=== PATIENT | female | born 1935 | race Caucasian/White ===

== ENCOUNTER 2022-02-10 05:17 | Inpatient (IN) | payer OTHER, MEDICARE ==
[~2022-02-10] VITALS: Ht 165.1 cm; Wt 93.9 kg
[~2022-02-10 05:17] MED LIST: BIMA2.5D5 OP; FURO-150 PO; ROPI1TAB2 PO; TIMO5DRO15 OP
[2022-02-10 06:00] VITALS: BP_SYST 102
--- NOTE | 2022-02-10 06:23 | NUR ---
PER PATIENT AND EMS, PATIENT WAS ALTERED AND FEELING FEVERISH THIS AM. PATIENT WAS FOUND TO BE 76% ON RA. 10L SIMPLE MASK APPLIED TO PATIENT. PATIENT WAS A/O X4 UPON EMS ARRIVAL. PATIENT STILL WAITING IN AMBULANCE UNTIL COVID ROOM OPENS UP. EXPLAINED PROCESS TO PATIENT AND SHE STATED UNDERSTANDING.
--- NOTE | 2022-02-10 06:24 | NUR ---
MADELINE MICHEL [phone]
[2022-02-10 07:08] LABS: BASOPHILS % (AUTO) 0.3 % (0.0-2.0); EOSINOPHILS % (AUTO) 0.2 % (0.0-4.0); HEMATOCRIT 36.5 % (36-48); HEMOGLOBIN 12.3 g/dL (12.0-16.0); LYMPHOCYTES # (AUTO) 1.2 K/uL (1.0-5.5); LYMPHOCYTES % (AUTO) 14.6 % (20.5-51.5); MEAN CORPUSCULAR HEMOGLOBIN 28 pg (27-31); MEAN CORPUSCULAR HGB CONC 34 % (32-36); MEAN CORPUSCULAR VOLUME 83 fL (79.0-98.0); MONOCYTES # (AUTO) 0.9 K/uL (0.0-1.0); MONOCYTES % (AUTO) 10.5 % (1.7-9.3); NEUTROPHILS # (AUTO) 6.2 K/uL (1.8-7.7); NEUTROPHILS % (AUTO) 74.4 % (40.0-70.0); PLATELET COUNT (AUTO) 243 K/uL (130-430); RED BLOOD CELL COUNT(AUTO) 4.39 MIL/uL (4.2-6.2); RED CELL DISTRIBUTION WIDTH 14.6 % (9.0-15.0); WHITE BLOOD COUNT (AUTO) 8.3 K/uL (4.8-10.8)
[2022-02-10 07:20] LABS: ANION GAP 9 (5-15); CALCIUM 8.7 mg/dL (8.4-11.0); CHLORIDE 96 mmol/L (98-107); CREATININE 1.06 mg/dL (0.55-1.30); GLUCOSE 111 mg/dL (70-99); POTASSIUM 3.4 mmol/L (3.5-5.1); SODIUM SERUM 136 mmol/L (136-145); UREA NITROGEN, BLOOD 17 mg/dL (8-21)
[2022-02-10 07:29] LABS: ALANINE AMINOTRANSFERASE 11 U/L (12-78); ALBUMIN 3.2 g/dL (3.4-4.8); ASPARTATE AMINOTRANSFERASE 24 U/L (10-37); TOTAL BILIRUBIN 0.6 mg/dL (0.0-1.0)
--- NOTE | 2022-02-10 08:47 | NUR ---
RECEIVED PT FROM [facility]. PT AAOX4. ON NR AT 15LPM. O2 SAT 98%. NO COUGH NOTED. LUNG SOUNDS DIMINISHED. PT DENIES PAIN. PT DENIES IV ACCESS AT THIS TIME. PT STATES SHE WANT TO GO AMA. EDUCATED PT ON RISKS AND BENEFIT. PT WILL STAY AT THIS TIME.
--- NOTE | 2022-02-10 08:48 | NUR ---
RECEIVED PT FROM [facility] EMT. PT RECEIVING LABS AND CXR AT THIS TIME.
--- NOTE | 2022-02-10 09:52 | NUR ---
EKG performed at by [facility]. Physician given copy of EKG for review.
--- NOTE | 2022-02-10 10:31 | NUR ---
Admit bed requested Patient will be admitted to care of Dr. Colón. Admitted to tele unit. Diagnosis Acute resp fail, COVID PNA Inpatient (Yes or No) Y Observation (Yes or No) N Orientation concerns or request close to nursing station (Yes or No) N Covid Status Pend On vent or bipap N Isolation requirements N Needs a sitter N From Home (Yes or if No enter name of facility) Requires Dialysis (Yes or No) N Med Rec Completed (Yes of No) Y
[2022-02-10] MEDS ORDERED: IPRATROPIUM/ALBUTEROL SULFATE 3 ML AMPUL.NEB (DUONEB) INH PRN ×2 (14:00→14:15)
[2022-02-10] MEDS ORDERED: ACETAMINOPHEN 325 MG TABLET PO PRN (14:00)
[2022-02-10] MEDS ORDERED: ALBUTEROL MDI INHALATION 8 GM INH INH PRN (14:30)
[2022-02-10 17:09] VITALS: BP_SYST 133
--- NOTE | 2022-02-10 19:28 | NUR ---
ENDORSED ALL CARE TO CJ DUTTA. ALL QUESTIONS AND CONCERNS ADDRESSED.
[2022-02-10] MEDS ORDERED: CHOLECALCIFEROL (VITAMIN D3) 5,000 UNIT TABLET PO ONE (20:00)
[2022-02-10] MEDS ORDERED: PANTOPRAZOLE SODIUM 40 MG TAB PO ONE (20:00)
[2022-02-10] MEDS ORDERED: POTASSIUM CHLORIDE 20 MEQ TAB.PRT.SR PO ONE (20:00)
[2022-02-10 20:12] LABS: BILIRUBIN,URINE NEGATIVE (NEGATIVE); BLOOD, URINE NEGATIVE (NEGATIVE); CLARITY/URINE CLEAR (CLEAR); COLOR,URINE YELLOW (YELLOW); GLUCOSE,URINE NEGATIVE (NEGATIVE); KETONES,URINE TRACE (NEGATIVE); LEUKOCYTE ESTERASE ,URINE TRACE (NEGATIVE); NITRITE, URINE NEGATIVE (NEGATIVE); PH,URINE 5.5 (5.0-8.0); PROTEIN URINE 1+ (NEGATIVE); UROBILINOGEN,URINE 0.2 (0.2-1.0)
--- NOTE | 2022-02-10 20:30 | NUR ---
Patient will be admitted to care of TELE. Admitted to unit. Will go to room . Belongings list completed. Complete and up to date summary report printed. SBAR report to be given at bedside with opportunity for questions.
[2022-02-10 20:43] LABS: BACTERIA,URINE MODERATE /HPF (None Seen); FINE GRANULAR CASTS,URINE 0-10 /LPF (None Seen); HYALINE CASTS, URINE 0-10 /LPF (None Seen); RBC,URINE 0-3 /HPF (0-3); WBC,URINE 0-3 /HPF (0-3)
--- NOTE | 2022-02-10 20:48 | NUR ---
PATIENT BEING SET UP FOR TRANSFER TO UNIT, BED 124A
[2022-02-10 22:06] VITALS: BP_SYST 120
[2022-02-10] MEDS: DEXAMETHASONE SOD PHOSPHATE 10 MG/ML VIAL IVP SCH (22:52)
[2022-02-10] MEDS: ASCORBIC ACID 500 MG TABLET PO SCH (22:53)
[2022-02-10] MEDS: MAGNESIUM OXIDE 400 MG TABLET PO SCH (22:53)
[2022-02-10] MEDS: LATANOPROST 2.5 ML DROPS (XALATAN) OP SCH (22:54)
[2022-02-10] MEDS: TIMOLOL MALEATE 0.5% OPHTHALMIC DROPS 5 ML OP SCH (22:55)
--- NOTE | 2022-02-10 23:00 | NUR ---
ADMISSION NOTE Received patient from ER via gurney. Patient admitted with diagnosis of RESP FAILURE AND COVID PNS. Patient is awake, alert, oriented X2-3. Patient oriented to hospital room, call light, toileting, pain management and safety-teach back done. Patient informed that I will be HER nurse and that their room number is 124A. Personal belongings checked and Belongings List documented. Call light within reach.
--- NOTE | 2022-02-11 | NUR ---
NO CHANGES NOTED FROM THE PREVIOUS ASSESSMENT, WILL CONTINUE TO MONITOR.
[2022-02-11 00:39] VITALS: BP_SYST 121
--- NOTE | 2022-02-11 01:20 | NUR ---
CALLED : DR MOORE CALLED , NOTIFIED MD THAT PT IS C/O ANXIETY AND PT TAKES ATIVAN AT HOME , BUT PT DOESNT REMEMBER THE DOSE . ORDERED ATIVAN 1 MG PO BID PRN FOR ANXIETY , ALSO C/O DIFFICULTY IN SLEEPING , MD ORDERED RESTORIL 30 MG PO QHS PRN . FOR PAIN MD ORDERED ULTRAM 50 MG PO Q6HRS PRN FOR MODERATE PAIN , AND TYLENOL 650 MG PO Q6HRS PRN FOR MILD PAIN . ORDER READBACK AND VERIFIED WITH MD . PRIMARY RN NOTIFIED ABOUT THE NEW ORDERS. MD ORDERED NOT TO GIVE RESTORIL AND ATIVAN TOGETHER , INFORMED THAT ALSO TO PRIMARY RN .
[2022-02-11] MEDS ORDERED: ACETAMINOPHEN 325 MG TABLET PO PRN (01:30)
[2022-02-11] MEDS ORDERED: traMADol HCL HCL 50 MG TABLET (ULTRAM) PO PRN (01:30)
[2022-02-11] MEDS ORDERED: TEMAZEPAM 15 MG CAPSULE PO PRN (01:30)
[2022-02-11] MEDS: LORazepam 1 MG TABLET PO PRN ×3 (02:27→20:54)
--- NOTE | 2022-02-11 06:14 | NUR ---
PT RESTING COMFORTABLY IN BED, NO S/S OF DISTRESS OR DISCOMFORT NOTED, BREATHING EVEN AND UNLABORED, ALL FALL PROTOCOLS IN PLACE, WILL CONTINUE TO MONITOR AND ENDORSED TO INCOMING AM NURSE.
--- NOTE | 2022-02-11 06:41 | NUR ---
consult called for cardio for Dr Sultana. Spoke with Radha
[2022-02-11 06:48] LABS: HEMATOCRIT 37.1 % (36-48); HEMOGLOBIN 12.6 g/dL (12.0-16.0); LYMPHOCYTES # (AUTO) 0.7 K/uL (1.0-5.5); LYMPHOCYTES % (AUTO) 15.1 % (20.5-51.5); MEAN CORPUSCULAR HEMOGLOBIN 28 pg (27-31); MEAN CORPUSCULAR HGB CONC 34 % (32-36); MEAN CORPUSCULAR VOLUME 83 fL (79.0-98.0); MONOCYTES # (AUTO) 0.1 K/uL (0.0-1.0); MONOCYTES % (AUTO) 2.2 % (1.7-9.3); NEUTROPHILS # (AUTO) 3.6 K/uL (1.8-7.7); NEUTROPHILS % (AUTO) 82.7 % (40.0-70.0); PLATELET COUNT (AUTO) 238 K/uL (130-430); RED BLOOD CELL COUNT(AUTO) 4.47 MIL/uL (4.2-6.2); RED CELL DISTRIBUTION WIDTH 14.1 % (9.0-15.0); WHITE BLOOD COUNT (AUTO) 4.4 K/uL (4.8-10.8)
--- NOTE | 2022-02-11 06:49 | NUR ---
consult called for ID for Dr Gordon. Spoke with Radha
--- NOTE | 2022-02-11 07:15 | NUR ---
REPORT GIVEN TO ORIN MONREAL FOR CONTINUITY OF CARE ALL QUESTIONS WERE ANSWERED AND CEMENT LOADER VERBALIZED UNDERSTANDING.
[2022-02-11 08:00] VITALS: BP_SYST 174
[2022-02-11 08:22] LABS: ALBUMIN 3.1 g/dL (3.4-4.8); ANION GAP 7 (5-15); ASPARTATE AMINOTRANSFERASE 22 U/L (10-37); CALCIUM 8.8 mg/dL (8.4-11.0); CHLORIDE 97 mmol/L (98-107); GLUCOSE 130 mg/dL (70-99); POTASSIUM 4.1 mmol/L (3.5-5.1); SODIUM SERUM 134 mmol/L (136-145); TOTAL BILIRUBIN 0.5 mg/dL (0.0-1.0); UREA NITROGEN, BLOOD 22 mg/dL (8-21)
[2022-02-11] MEDS: ASCORBIC ACID 500 MG TABLET PO SCH ×3 (08:34→20:53)
[2022-02-11] MEDS: MAGNESIUM OXIDE 400 MG TABLET PO SCH ×3 (08:34→20:53)
[2022-02-11] MEDS: TIMOLOL MALEATE 0.5% OPHTHALMIC DROPS 5 ML OP SCH ×3 (08:34→20:54)
[2022-02-11] MEDS: PANTOPRAZOLE SODIUM 40 MG TAB PO SCH ×2 (08:35→08:56)
[2022-02-11] MEDS: CHOLECALCIFEROL (VITAMIN D3) 5,000 UNIT TABLET PO SCH ×2 (08:35→08:56)
[2022-02-11] MEDS: POTASSIUM CHLORIDE 20 MEQ TAB.PRT.SR PO SCH (08:35)
[2022-02-11 08:39] LABS: ALANINE AMINOTRANSFERASE 10 U/L (12-78)
[2022-02-11] MEDS: FUROSEMIDE 40 MG TABLET PO SCH ×2 (08:39→08:55)
--- NOTE | 2022-02-11 08:57 | NUR ---
OPENING NOTE Patient in bed resting with eyes closed. No sign of distress and patient denies pain. Patient has refused 5 medications stating, "I took them last night, I don't need them". Attempted to educate the patient but she continued to refuse. IV site is clean, dry, and intact. Educated patient on her plan of care for the day and isolation precautions. All needs met at this time and safety checks made.
[2022-02-11] MEDS ORDERED: BIMATOPROST 0.01%, 2.5 ML EYE DROPS OP SCH (09:00)
[2022-02-11 10:14] VITALS: BP_SYST 159
[2022-02-11] MEDS ORDERED: LISINOPRIL 10 MG TABLET (PRINIVIL) PO ONE (10:15)
[2022-02-11] MEDS: AZITHROMYCIN 500 MG in NS 250 ML IV SCH (14:44)
[2022-02-11 16:05] VITALS: BP_SYST 151
--- NOTE | 2022-02-11 19:35 | NUR ---
CLOSING NOTE Patient resting in bed, alert and oriented to self and place. Patient has been agitated and wishes to be discharged home. Updated the patient on her plan of care, verbalized understanding. Patient is forgetful and overestimates her ability to get up and walk. Reoriented patient and ensured safety measures. IV is clean, dry, intact, and saline locked. Safety checks made and all needs met at this time. Endorsed to night worker nurse.
[2022-02-11 20:00] VITALS: BP_SYST 182
--- NOTE | 2022-02-11 20:00 | NUR ---
RECEIVED PT FROM DAY SHIFT, PT AOX2-3,NO ACUTE DISTRESS OR DISCOMFORT NOTED, BREATHING EVEN AND UNLABORED, IV SITE IS INTACT AND PATENT SALINE LOCK, 2L NC SATURATING WELL, FALL AND SAFETY PRECAUTIONS IN PLACE WITH BED IN LOWEST POSITION, BED ALARM ON, AND CALL LIGHT WITHIN REACH, WILL CONTINUE TO MONITOR.
[2022-02-11] MEDS: DEXAMETHASONE SOD PHOSPHATE 10 MG/ML VIAL IVP SCH (20:53)
[2022-02-11] MEDS: LATANOPROST 2.5 ML DROPS (XALATAN) OP SCH (20:54)
[2022-02-11] MEDS: cloNIDine HCL 0.1 MG TABLET PO PRN (20:56)
--- NOTE | 2022-02-12 | NUR ---
NO CHANGES NOTED FROM THE PREVIOUS ASSESSMENT, WILL CONTINUE TO MONITOR.
[2022-02-12 01:14] VITALS: BP_SYST 178
[2022-02-12] MEDS: cloNIDine HCL 0.1 MG TABLET PO PRN (01:43)
[2022-02-12 01:45] VITALS: BP_SYST 157
[2022-02-12] MEDS ORDERED: cloNIDine HCL 0.1 MG TABLET PO PRN (02:00)
--- NOTE | 2022-02-12 07:22 | NUR ---
REPORT GIVEN TO DESIREE MONREAL FOR CONTINUITY OF CARE ALL QUESTIONS WERE ANSWERED AND BAKERY DEMONSTRATOR VERBALIZED UNDERSTANDING.
[2022-02-12 07:45] VITALS: BP_SYST 135
--- NOTE | 2022-02-12 08:00 | NUR ---
OPENING NOTES: Received Pt. in bed, alert, awake, able to make her needs known. Safety precaution observed. Will continue to monitor.
[2022-02-12] MEDS ORDERED: LISINOPRIL 10 MG TABLET (PRINIVIL) PO SCH (09:00)
[2022-02-12] MEDS: TIMOLOL MALEATE 0.5% OPHTHALMIC DROPS 5 ML OP SCH ×2 (09:52→22:05)
[2022-02-12] MEDS: PANTOPRAZOLE SODIUM 40 MG TAB PO SCH (09:54)
[2022-02-12] MEDS: POTASSIUM CHLORIDE 20 MEQ TAB.PRT.SR PO SCH (09:54)
[2022-02-12] MEDS: FUROSEMIDE 40 MG TABLET PO SCH (09:55)
[2022-02-12] MEDS: LISINOPRIL 10 MG TABLET (PRINIVIL) PO SCH (09:56)
[2022-02-12] MEDS: MAGNESIUM OXIDE 400 MG TABLET PO SCH ×2 (09:56→22:04)
[2022-02-12] MEDS: ASCORBIC ACID 500 MG TABLET PO SCH ×2 (09:56→22:03)
[2022-02-12] MEDS: ENOXAPARIN SODIUM 40 MG/0.4 ML SYRINGE SUBCUT SCH (09:57)
[2022-02-12] MEDS: CHOLECALCIFEROL (VITAMIN D3) 5,000 UNIT TABLET PO SCH (09:58)
[2022-02-12 12:07] VITALS: BP_SYST 132
--- NOTE | 2022-02-12 13:09 | NUR ---
Dietitian Recommendations * Mechanical soft diet, Ensure Enlive TID (ONS yield 1050 kcal/day, 60 gm protein/day) * Encourage increase PO intakes LP, RD Please refer to Nutrition Assessment for details. Addendum: 02/12/22 at [address] Amended: Links added.
[2022-02-12] MEDS: AZITHROMYCIN 500 MG in NS 250 ML IV SCH (14:10)
--- NOTE | 2022-02-12 15:08 | NUR ---
Wound Evaluation: Wound Consult ordered for Low David Score. Patient evaluated for a low David score of 14. Patient was awake, alert, oriented and received in a Christel Bed. Patient needs assist to turn in bed. Skin is intact. Recommend: Encourage and assist patient as needed with repositioning every 2 hours with pillow support. Elevate, off-load and float bilateral heels with pillows. Offload pressure areas with pillows for pressure re-distribution. Perform skin care and monitor skin integrity Q shift. Use moisture barrier cream on moisture susceptible areas QID and PRN for soiling. Place patient on a low air-loss mattress.
--- NOTE | 2022-02-12 15:22 | NUR ---
DISCHARGE PLANNING Order for dc planning for home health & home o2. Discussed with Dr Colón this am in ns station, plan for dc home tomorrow if pt stable and home O2, if needed, set up. Spoke with nurse & aware of plan, states will do home O2 eval. Pt covid +, called room and no answer. Called pt ph listed on face sheet & was dtr Christy Lr's #, ph [phone]. Verified address correct on face sheet. Pt lives with 26 yo grandson. Updated on PT notes. States wants pt to dc home, agreeable with home O2 if qualifies. Agreeable with home health with no preference. Dtr states aware that home health may not come until off quarintine and ok with it, would like to know when they would be starting. States Grandson is going to be quarantining with pt, does not have covid but will be taking precautions. Dtr lives close by and is going to be making meals and taking it to them, also will be taking them groceries. Has a lot of other family that also live close by and can assist if needed but will try to minimize to grandson living with pt to not spread covid. Updated dc special events planner.
[2022-02-12 16:09] VITALS: BP_SYST 131
--- NOTE | 2022-02-12 18:00 | NUR ---
CLOSING NOTES: Pt. alert, cooperative. PT did evaluation for O2 tolerance. Pt. started at 96% O2 before ambulation PT. O2 dropped to 88% during ambulation and up to 93% after ambulation and rest. Started to put Pt. on RA, O2 sat varies from 93% to 96% on RA. Patient need met throughout shift, kept clean and dry, safety precaution observed, IV patent and infusing well.
[2022-02-12 20:00] VITALS: BP_SYST 181
--- NOTE | 2022-02-12 20:00 | NUR ---
RECEIVED PT FROM DAY SHIFT, PT AOX2-3,NO ACUTE DISTRESS OR DISCOMFORT NOTED, BREATHING EVEN AND UNLABORED, IV SITE IS INTACT AND PATENT SALINE LOCK, ROOM AIR SATURATING WELL, FALL AND SAFETY PRECAUTIONS IN PLACE WITH BED IN LOWEST POSITION, BED ALARM ON, BSC ,AND CALL LIGHT WITHIN REACH, WILL CONTINUE TO MONITOR.
[2022-02-12] MEDS: LORazepam 1 MG TABLET PO PRN (22:02)
[2022-02-12] MEDS: DEXAMETHASONE SOD PHOSPHATE 10 MG/ML VIAL IVP SCH (22:05)
[2022-02-12] MEDS: LATANOPROST 2.5 ML DROPS (XALATAN) OP SCH (22:06)
--- NOTE | 2022-02-13 | NUR ---
NO CHANGES NOTED FROM THE PREVIOUS ASSESSMENT, WILL CONTINUE TO MONITOR.
[2022-02-13 01:45] VITALS: BP_SYST 154
[2022-02-13 07:22] LABS: BASOPHILS % (AUTO) 0.2 % (0.0-2.0); HEMATOCRIT 37.8 % (36-48); HEMOGLOBIN 12.9 g/dL (12.0-16.0); LYMPHOCYTES # (AUTO) 0.6 K/uL (1.0-5.5); LYMPHOCYTES % (AUTO) 10.6 % (20.5-51.5); MEAN CORPUSCULAR HEMOGLOBIN 28 pg (27-31); MEAN CORPUSCULAR HGB CONC 34 % (32-36); MEAN CORPUSCULAR VOLUME 82 fL (79.0-98.0); MONOCYTES # (AUTO) 0.2 K/uL (0.0-1.0); MONOCYTES % (AUTO) 3.9 % (1.7-9.3); NEUTROPHILS # (AUTO) 5.2 K/uL (1.8-7.7); NEUTROPHILS % (AUTO) 85.3 % (40.0-70.0); PLATELET COUNT (AUTO) 255 K/uL (130-430); RED BLOOD CELL COUNT(AUTO) 4.61 MIL/uL (4.2-6.2); RED CELL DISTRIBUTION WIDTH 14.4 % (9.0-15.0); WHITE BLOOD COUNT (AUTO) 6.1 K/uL (4.8-10.8)
--- NOTE | 2022-02-13 07:32 | NUR ---
REPORT GIVEN TO DESIREE MONREAL FOR CONTINUITY OF CARE ALL QUESTIONS WERE ANSWERED AND LOGGING TRUCK DRIVER VERBALIZED UNDERSTANDING.
[2022-02-13 08:00] VITALS: BP_SYST 154
[2022-02-13 09:21] VITALS: BP_SYST 154
--- NOTE | 2022-02-13 10:28 | NUR ---
Discharge Planning: [facility] faxed pt referral to [facility] [phone], [facility] [phone] for home oxygen. [facility] left form on pt chart to sign for home oxygen. DCP to follow up Addendum: 02/13/22 at 1551 by Talita Dhillon DP DCP faxed signed documents to [facility] [phone] home oxygen will be delivered, [facility] [phone] nursing for covid positive. [facility] faxed to [facility] [phone] Alex contact Sh[facility] [phone] patient was accepted and can be seen 5 days after testing positive, she can be seen Wednesday. [facility]INA made weekend CM aware.
[2022-02-13] MEDS: ENOXAPARIN SODIUM 40 MG/0.4 ML SYRINGE SUBCUT SCH (10:47)
[2022-02-13] MEDS: CHOLECALCIFEROL (VITAMIN D3) 5,000 UNIT TABLET PO SCH (10:48)
[2022-02-13] MEDS: FUROSEMIDE 40 MG TABLET PO SCH ×2 (10:48→11:06)
[2022-02-13] MEDS: POTASSIUM CHLORIDE 20 MEQ TAB.PRT.SR PO SCH ×2 (10:49→11:05)
[2022-02-13] MEDS: PANTOPRAZOLE SODIUM 40 MG TAB PO SCH (10:49)
[2022-02-13] MEDS: ASCORBIC ACID 500 MG TABLET PO SCH (10:49)
[2022-02-13] MEDS: MAGNESIUM OXIDE 400 MG TABLET PO SCH (10:49)
[2022-02-13] MEDS: LISINOPRIL 10 MG TABLET (PRINIVIL) PO SCH (10:50)
[2022-02-13] MEDS: TIMOLOL MALEATE 0.5% OPHTHALMIC DROPS 5 ML OP SCH (10:50)
[2022-02-13 12:30] VITALS: BP_SYST 169
[2022-02-13] MEDS ORDERED: CHOL500013 PO (14:17)
[2022-02-13] MEDS ORDERED: LISI10TA29 PO (14:17)
[2022-02-13] MEDS ORDERED: ALBMDI INH (14:17)
[2022-02-13] MEDS ORDERED: MAGN400T10 PO (14:17)
[2022-02-13] MEDS ORDERED: POTA-197 PO (14:17)
[2022-02-13] MEDS ORDERED: FURO-149 PO (14:17)
[2022-02-13] MEDS ORDERED: DEC4 PO (14:17)
[2022-02-13] MEDS ORDERED: PRO40 PO (14:17)
[2022-02-13 16:00] VITALS: BP_SYST 168
--- NOTE | 2022-02-13 16:00 | NUR ---
DISCHARGE NOTES: Pt. received a copy of CT scan report from Dr. Colón. Dr. Colón explained to patient the result of CT Scan. Pt. verbalized understanding of MD information and instruction. Patient with order for discharge today.
[2022-02-13 16:53] VITALS: BP_SYST 153
== END 2022-02-13 17:40 | disposition home health service (06) | DRG 177 ==
LOC: SED 05:17 → STU 10:27
PROVIDERS: ADMIT Internal Medicine; ATTEND Internal Medicine
DX: U07.1 COVID-19 (principal); J12.82 Pneumonia due to coronavirus disease 2019; J96.01 Acute respiratory failure with hypoxia; J44.1 Chronic obstructive pulmonary disease with (acute) exacerbation; J44.0 Chronic obstructive pulmonary disease with (acute) lower respiratory infection; E44.1 Mild protein-calorie malnutrition; I10 Essential (primary) hypertension; R55 Syncope and collapse; Z96.653 Presence of artificial knee joint, bilateral; E66.9 Obesity, unspecified; Z88.1 Allergy status to other antibiotic agents; Z88.0 Allergy status to penicillin; Z79.899 Other long term (current) drug therapy; Z68.34 Body mass index [BMI] 34.0-34.9, adult
CPT/HCPCS: 36415; 36600; 71045; 71250-TC; 76376; 80053; 81000; 82803-TC; 83605; 83880; 84484; 85025; 85379; 86140; 87040; 87086; 87305; 93005; 96374; 97163-GP; 99291; G0378; J0456; J0696; J1100; J1650; J1956; J7050; J7060